=== PATIENT | male | born 1955 | race Caucasian/White ===

== ENCOUNTER 2020-12-14 20:04 | Emergency (ER) | payer SELFPAY ==
[~2020-12-14] VITALS: Ht 165.1 cm; Wt 104.3 kg
[2020-12-14 20:18] VITALS: BP 159/78
--- NOTE | 2020-12-14 20:18 | NUR ---
TO BED AMBULATORY Addendum: 12/14/20 at 2126 by PATRICK Amendment undjulia in EDM - 12/14/20 at 2126 by PATRICK PT TAKEN TO IDAAY FROM SHAYLA RUBI
--- NOTE | 2020-12-14 21:23 | NUR ---
Dr. Cleary examining patient.
[2020-12-14] MEDS ORDERED: IBUPROFEN 600 MG TAB PO ONE (21:25)
--- NOTE | 2020-12-14 21:25 | NUR ---
MEDICATED PER ERMDS ORDER, TOLERATED WELL
--- NOTE | 2020-12-14 21:27 | NUR ---
PT TAKEN TO XRAY FROM SHAYLA RUBI
[2020-12-14 21:47] LABS: BASOPHILS # (AUTO) 0.1 K/uL (0.00-0.22); BASOPHILS % (AUTO) 0.6 % (0.0-2.0); EOSINOPHILS # (AUTO) 0.1 K/uL (0-0.4); EOSINOPHILS % (AUTO) 0.6 % (0.0-4.0); HEMATOCRIT 43.3 % (36-52); HEMOGLOBIN 15.1 g/dL (12.0-18.0); LYMPHOCYTES # (AUTO) 2.1 K/uL (2.0-11.5); LYMPHOCYTES % (AUTO) 22.5 % (20.5-51.1); MEAN CORPUSCULAR HEMOGLOBIN 32 pg (27-31); MEAN CORPUSCULAR HGB CONC 35 g/dL (33-37); MEAN CORPUSCULAR VOLUME 90.9 fL (80-94); MONOCYTES # (AUTO) 0.6 K/uL (0.8-1.0); MONOCYTES % (AUTO) 6.4 % (1.7-9.3); NEUTROPHILS # (AUTO) 6.6 K/uL (1.8-7.7); NEUTROPHILS % (AUTO) 69.9 % (42.2-75.2); PLATELET COUNT (AUTO) 226 K/uL (140-450); RED BLOOD CELL COUNT(AUTO) 4.76 MIL/uL (4.20-6.10); RED CELL DISTRIBUTION WIDTH 13.6 % (11.6-13.7); WHITE BLOOD COUNT (AUTO) 9.4 K/uL (4.8-10.8)
[2020-12-14 22:07] LABS: ANION GAP 13.2 (8-16); CARBON DIOXIDE 31.2 mmol/L (21-32); CREATININE 0.7 mg/dL (0.6-1.3); POTASSIUM 3.4 mmol/L (3.5-5.1)
[2020-12-14] MEDS ORDERED: DOXY-487 PO (22:53)
--- NOTE | 2020-12-14 23:00 | NUR ---
ALL RESULTS BACK AND NOTED BY ERMD AND FOR D/C
[2020-12-14 23:15] VITALS: BP 123/72
== END 2020-12-14 23:15 | disposition home or self-care (01) ==
LOC: MED 20:04
DX: R91.8 Other nonspecific abnormal finding of lung field (principal); F10.10 Alcohol abuse, uncomplicated; E11.9 Type 2 diabetes mellitus without complications; Z79.899 Other long term (current) drug therapy
CPT/HCPCS: 36415; 71045; 80048; 84484; 85025; 93005; 99285

== ENCOUNTER 2021-02-12 19:40 | Emergency (ER) | payer SELFPAY ==
[~2021-02-12] VITALS: Ht 165.1 cm; Wt 99.8 kg
[~2021-02-12 19:40] MED LIST: DOXY-487 PO
[2021-02-12 20:08] VITALS: BP 134/81
--- NOTE | 2021-02-12 20:08 | NUR ---
TO BED AMBULATORY
--- NOTE | 2021-02-12 20:24 | NUR ---
MARY Mak at bedside for examination of patient
--- NOTE | 2021-02-12 20:45 | NUR ---
patient to CT via w/c
[2021-02-12] MEDS ORDERED: MIRABULK PO (21:11)
[2021-02-12] MEDS ORDERED: FLEMIN RC (21:11)
[2021-02-12] MEDS ORDERED: GLYPS RC (21:11)
--- NOTE | 2021-02-12 21:23 | NUR ---
Patient discharged with v/s stable. Written and verbal after care instructions given and explained. Patient alert, oriented and verbalized understanding of instructions. Ambulatory with steady gait. All questions addressed prior to discharge. ID band removed. Patient advised to follow up with PMD. Rx of Mineral oil enema, glycerin, and miralax given. Patient educated on indication of medication including possible reaction and side effects. Opportunity to ask questions provided and answered.
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
[2021-02-12 21:24] VITALS: BP 137/93
== END 2021-02-12 21:23 | disposition home or self-care (01) ==
LOC: MED 19:40
DX: K59.00 Constipation, unspecified (principal); K62.89 Other specified diseases of anus and rectum; E11.9 Type 2 diabetes mellitus without complications; Z79.899 Other long term (current) drug therapy; Z98.890 Other specified postprocedural states
CPT/HCPCS: 74021; 99283

== ENCOUNTER 2021-03-10 18:38 | Emergency (ER) | payer SELFPAY ==
[~2021-03-10] VITALS: Ht 167.6 cm; Wt 113.4 kg
[~2021-03-10 18:38] MED LIST changes: +FLEMIN RC; +GLYPS RC; +MIRABULK PO
[2021-03-10 19:46] VITALS: BP 132/71
--- NOTE | 2021-03-10 19:49 | NUR ---
TO LOBBY A/W BED AMBULATORY
[2021-03-10] MEDS ORDERED: LIDOCAINE MPF 1% 10 MG/ML VIAL INJ ONE (22:45)
[2021-03-10] MEDS ORDERED: KETOROLAC 60 MG/2 ML VIAL IM ONE (22:45)
--- NOTE | 2021-03-10 22:50 | NUR ---
PT AMBULATED TO BED 01
[2021-03-10] MEDS ORDERED: CEPH-588 PO (23:33)
[2021-03-10] MEDS ORDERED: IBUP-2213 PO (23:33)
[2021-03-10] MEDS ORDERED: ACET-8386 PO (23:33)
[2021-03-10 23:59] VITALS: BP 132/71
--- NOTE | 2021-03-10 23:59 | NUR ---
Patient discharged with v/s stable. Written and verbal after care instructions given and explained. Patient verbalized understanding. Ambulatory with steady gait. All questions addressed prior to discharge. Advised to follow up with PMD.
== END 2021-03-10 23:59 | disposition home or self-care (01) ==
LOC: MED 18:38
DX: L02.511 Cutaneous abscess of right hand (principal); E11.9 Type 2 diabetes mellitus without complications; F15.10 Other stimulant abuse, uncomplicated; F11.10 Opioid abuse, uncomplicated
CPT/HCPCS: 10060; 36415; 81002; 87491; 96372; 99283; J1885; J2001

== ENCOUNTER 2022-01-11 19:57 | Emergency (ER) | payer MEDICAID ==
[~2022-01-11] VITALS: Ht 165.1 cm; Wt 78.0 kg
[~2022-01-11 19:57] MED LIST changes: +ACET-8386 PO; +CEPH-588 PO; +IBUP-2213 PO
[2022-01-11 20:04] VITALS: BP 152/67
--- NOTE | 2022-01-11 20:24 | NUR ---
Patient taken to x-ray via WC.
--- NOTE | 2022-01-11 21:02 | NUR ---
Dr. Coffey examining patient.
--- NOTE | 2022-01-11 23:01 | NUR ---
Dr. Delaney examining patient.
[2022-01-11] MEDS ORDERED: IBUP-1842 PO (23:33)
[2022-01-11 23:55] VITALS: BP 125/62
--- NOTE | 2022-01-11 23:55 | NUR ---
Patient discharged with v/s stable. Written and verbal after care instructions given and explained for knee sprain, adult. Patient alert, oriented and verbalized understanding of instructions. Ambulatory with steady gait. All questions addressed prior to discharge. ID band removed. Patient advised to follow up with PMD. Rx of Ibuprofen given. Patient educated on indication of medication including possible reaction and side effects. Opportunity to ask questions provided and answered.
== END 2022-01-11 23:55 | disposition home or self-care (01) ==
LOC: MED 19:57
DX: M25.561 Pain in right knee (principal); E11.9 Type 2 diabetes mellitus without complications; Z79.4 Long term (current) use of insulin; Z79.899 Other long term (current) drug therapy
CPT/HCPCS: 73562; 99283

== ENCOUNTER 2022-01-13 16:11 | Emergency (ER) | payer MEDICAID ==
[~2022-01-13] VITALS: Ht 175.3 cm; Wt 86.2 kg
[~2022-01-13 16:11] MED LIST changes: +IBUP-1842 PO
[2022-01-13 16:14] VITALS: BP 122/78
--- NOTE | 2022-01-13 16:19 | NUR ---
PT AMBULATED TO ROOM 7
--- NOTE | 2022-01-13 16:31 | NUR ---
66YO MALE PT IN FOR MEDICATION REFILL - RX SUBOXINE. PT AAOX4, RESPIRATIONS EVEN AND UNLABORED. HOB POSITIONED PER COMFORT. HX:DIABETES, HTN , MIGRAINE NKA
--- NOTE | 2022-01-13 16:34 | NUR ---
MEENAKSHI BRANHAM AT BEDSIDE FOR EVALUATION
--- NOTE | 2022-01-13 16:35 | NUR ---
66/M PRESENTS TO ED REQUESTING REFILL FOR SUBOXONE, DENIES N/V/D, PAIN, SOB. NO OTHER MEDICAL COMPLAINTS.
[2022-01-13] MEDS ORDERED: BUPR1FIL2 SL (16:42)
--- NOTE | 2022-01-13 16:55 | NUR ---
Patient discharged with v/s stable. Written and verbal after care instructions FOR OPIOID WITHDRAWAL TREATMENT given and explained. Patient alert, oriented and verbalized understanding of instructions. Ambulatory with steady gait. All questions addressed prior to discharge. ID band removed. Patient advised to follow up with PMD. Rx of SUBOXONE given. Opportunity to ask questions provided and answered.
--- NOTE | 2022-01-13 16:58 | NUR ---
The patient's care was reviewed and supervised by Jenni Oh RN.
== END 2022-01-13 16:55 | disposition home or self-care (01) ==
LOC: MED 16:11
DX: E11.9 Type 2 diabetes mellitus without complications (principal); F11.23 Opioid dependence with withdrawal; Z76.0 Encounter for issue of repeat prescription; Z79.4 Long term (current) use of insulin; Z79.899 Other long term (current) drug therapy
CPT/HCPCS: 99281

== ENCOUNTER 2022-01-27 23:10 | Emergency (ER) | payer SELFPAY ==
[~2022-01-27] VITALS: Ht 165.1 cm; Wt 77.1 kg
[~2022-01-27 23:10] MED LIST changes: +BUPR1FIL2 SL
[2022-01-27 23:26] VITALS: BP 118/66
--- NOTE | 2022-01-27 23:27 | NUR ---
PT AMBULATED TO BED #3
[2022-01-27] MEDS ORDERED: DOXYCYCLINE 100 MG CAP PO STA (23:46)
[2022-01-27] MEDS ORDERED: LIDOCAINE/EPI 2% 1:100000 20 ML VIAL INJ ONE (23:50)
--- NOTE | 2022-01-28 00:40 | NUR ---
DR. ARAMBULA AT BEDSIDE FOR PROCEDURE OF I&D TO LEFT ARMPIT. PT TOLERATING WELL.
[2022-01-28] MEDS ORDERED: DOXY-690 PO (00:53)
[2022-01-28 01:05] VITALS: BP 112/68
--- NOTE | 2022-01-28 01:05 | NUR ---
Patient discharged with v/s stable. Written and verbal after care instructions given and explained. Patient alert, oriented and verbalized understanding of instructions. Ambulatory with steady gait. All questions addressed prior to discharge. ID band removed. Patient advised to follow up with PMD. Rx of VIBRAMYCIN given. Patient educated on indication of medication including possible reaction and side effects. Opportunity to ask questions provided and answered.
[2022-01-29] MEDS ORDERED: BUPR1FIL2 SL (18:03)
[2022-01-29] MEDS ORDERED: IBUP-2213 PO (18:03)
== END 2022-01-28 01:05 | disposition home or self-care (01) ==
LOC: MED 23:10
DX: L02.412 Cutaneous abscess of left axilla (principal); I10 Essential (primary) hypertension; E11.9 Type 2 diabetes mellitus without complications; Z79.4 Long term (current) use of insulin; Z79.899 Other long term (current) drug therapy
CPT/HCPCS: 10060; 99283; J2001

== ENCOUNTER 2022-01-29 16:32 | Emergency (ER) | payer SELFPAY ==
[~2022-01-29] VITALS: Ht 165.1 cm; Wt 77.1 kg
[~2022-01-29 16:32] MED LIST changes: +DOXY-690 PO
[2022-01-29 16:57] VITALS: BP 150/94
--- NOTE | 2022-01-29 17:43 | NUR ---
PT AMB TO ER BED 7
--- NOTE | 2022-01-29 17:46 | NUR ---
MEENAKSHI Pena evaluating patient at bedside.
[2022-01-29] MEDS ORDERED: BACITRACIN OINT 500 UNITS/GM PKT TP ONE (17:55)
--- NOTE | 2022-01-29 18:00 | NUR ---
66 y/o male bib self with c/o wound recheck. Patient had an I&D 2 days ago. Patient is noted with multiple abscesses to left axillary. Patient has 7/10 pain to area. Medical History: DM, HTN NKDA
[2022-01-29] MEDS ORDERED: IBUP-2213 PO (18:03)
[2022-01-29] MEDS ORDERED: BUPR1FIL2 SL (18:03)
--- NOTE | 2022-01-29 18:08 | NUR ---
PTS WOUND ON LEFT AXILLA WAS CLEANED WITH SALINE. WOUND WAS THEN DRESSED WITH NONADHERENT GAUZE PAD AND TAPED DOWN.
--- NOTE | 2022-01-29 18:11 | NUR ---
Note hakan in EDM - 01/29/22 at 1812 by SAMI Patient discharged with v/s stable. Written and verbal after care instructions given. Patient verbalized understanding. Ambulatory with steady gait. All questions addressed prior to discharge. Advised to follow up with PMD.
[2022-01-29 18:29] VITALS: BP 146/84
--- NOTE | 2022-01-29 18:29 | NUR ---
Patient discharged with v/s stable. Written and verbal after care instructions given. Patient alert, oriented and verbalized understanding of instructions. Ambulatory with steady gait. All questions addressed prior to discharge. ID band removed. Patient advised to follow up with PMD. Rx of Ibuprofen and Suboxone given. Opportunity to ask questions provided and answered.
--- NOTE | 2022-01-29 18:30 | NUR ---
Chart checked and completed. The patient's care was reviewed and supervised by Francine Staples RN.
== END 2022-01-29 18:29 | disposition home or self-care (01) ==
LOC: MED 16:32
DX: Z48.00 Encounter for change or removal of nonsurgical wound dressing (principal); Z76.0 Encounter for issue of repeat prescription
CPT/HCPCS: 99282

== ENCOUNTER 2022-02-18 12:16 | Emergency (ER) | payer MEDICAID ==
[~2022-02-18] VITALS: Ht 165.1 cm; Wt 77.1 kg
[2022-02-18 13:08] VITALS: BP 121/81
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
[2022-02-18] MEDS ORDERED: SULF-58 PO (14:19)
[2022-02-18] MEDS ORDERED: BUPR1FIL2 SL (14:19)
--- NOTE | 2022-02-18 14:36 | NUR ---
PT UP FOR D/C BY MEENAKSHI TRUJILLO, PT LEFT WITHOUT D.C PAPERS.
== END 2022-02-18 14:36 | disposition home or self-care (01) ==
LOC: MED 12:16
DX: L02.414 Cutaneous abscess of left upper limb (principal); I10 Essential (primary) hypertension; E11.9 Type 2 diabetes mellitus without complications; Z79.4 Long term (current) use of insulin; Z79.899 Other long term (current) drug therapy
CPT/HCPCS: 99281

== ENCOUNTER 2022-06-11 16:42 | Inpatient (IN) | payer MEDICAID, OTHER ==
[~2022-06-11] VITALS: Ht 165.1 cm; Wt 74.8 kg
[~2022-06-11 16:42] MED LIST changes: -ACET-8386 PO; +ACET-8905 PO; +SULF-58 PO
[2022-06-11 16:48] VITALS: BP 115/90
[2022-06-11] MEDS ORDERED: MORPHINE SULFATE 4 MG/ML SYR IVP ONE (17:55)
[2022-06-11 18:48] LABS: BASOPHILS # (AUTO) 0.1 K/uL (0.00-0.22); BASOPHILS % (AUTO) 0.9 % (0.0-2.0); EOSINOPHILS # (AUTO) 0.1 K/uL (0-0.4); EOSINOPHILS % (AUTO) 1.1 % (0.0-4.0); HEMATOCRIT 39.7 % (36-52); HEMOGLOBIN 13.9 g/dL (12.0-18.0); LYMPHOCYTES # (AUTO) 2.3 K/uL (2.0-11.5); LYMPHOCYTES % (AUTO) 19.3 % (20.5-51.1); MEAN CORPUSCULAR HEMOGLOBIN 32 pg (27-31); MEAN CORPUSCULAR HGB CONC 35 g/dL (33-37); MEAN CORPUSCULAR VOLUME 90.2 fL (80-94); MONOCYTES # (AUTO) 0.9 K/uL (0.8-1.0); NEUTROPHILS # (AUTO) 8.3 K/uL (1.8-7.7); NEUTROPHILS % (AUTO) 70.7 % (42.2-75.2); PLATELET COUNT (AUTO) 258 K/uL (140-450); RED CELL DISTRIBUTION WIDTH 13.7 % (11.6-13.7); WHITE BLOOD COUNT (AUTO) 11.7 K/uL (4.8-10.8)
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
[2022-06-11 19:21] LABS: ALBUMIN 3.1 g/dL (3.4-5.0); ANION GAP 15.7 (8-16); CREATININE 0.9 mg/dL (0.6-1.3); POTASSIUM 4.7 mmol/L (3.5-5.1); TOTAL BILIRUBIN 0.7 mg/dL (0.0-1.0)
[2022-06-11] MEDS ORDERED: VANCOMYCIN 1,000 MG in DEXTROSE 5% 250 ML IV ONE (19:25)
[2022-06-11] MEDS ORDERED: INSULIN REGULAR, HUMAN 100 UNIT/ML VIAL IVP ONE (19:25)
[2022-06-11] MEDS ORDERED: NACL 0.9% 2,500 ML IV ONE (19:25)
[2022-06-11] MEDS ORDERED: VANCOMYCIN 1,000 MG VIAL ONE (19:47)
[2022-06-11] MEDS ORDERED: KETOROLAC 30 MG/ML VIAL IVP ONE (20:00)
[2022-06-11] MEDS ORDERED: ACETAMINOPHEN 325 MG TAB PO PRN (20:35)
[2022-06-11] MEDS ORDERED: MAGNESIUM OXIDE 400 MG TAB PO PRN (20:35)
[2022-06-11] MEDS: NACL 0.9% 1,000 ML IV SCH (20:35)
[2022-06-11] MEDS ORDERED: VANCOMYCIN PER PHARMACY MC PRN (20:35)
[2022-06-11] MEDS ORDERED: ONDANSETRON 4 MG/2 ML VIAL IVP PRN (20:35)
[2022-06-11] MEDS ORDERED: MORPHINE SULFATE 4 MG/ML SYR IVP PRN (20:35)
[2022-06-11] MEDS ORDERED: MAG SULF 2000 MG/WATER PREMIX 50 ML IV PRN (20:35)
[2022-06-11] MEDS ORDERED: POTASSIUM CHLORIDE 10 MEQ TABER PO PRN (20:35)
[2022-06-11] MEDS ORDERED: KCL 20 MEQ IN 100 mL PREMIX 200 ML IV PRN (20:35)
--- NOTE | 2022-06-11 21:04 | NUR ---
PT UNABLE TO RECALL MEDS. PT STATES HE IS TAKING INSULIN
--- NOTE | 2022-06-11 21:54 | NUR ---
REPORT CALLED TO NADIR PATE
--- NOTE | 2022-06-11 22:00 | NUR ---
TO BED 108B VIA W/C
[2022-06-11 22:15] VITALS: BP 104/75
--- NOTE | 2022-06-11 22:15 | NUR ---
PT TRANSPORTED TO [facility] UNIT VIA WHEELCHAIR. RECEIVED REPORT FROM ER NURSE ERROL FOR CONTINUITY OF CARE. PT A/A/O. HAVE A DIFFICULTY WALKING, PT HAVE WALKER AT BEDSIDE. RESPIRATIONS EVEN AND UNLABORED ON RA. NO DISTRESS NOTED. CONTINENT TO BOWEL AND BLADDER. NOTED OPEN WOUND ON RIGHT LOWER EXT WITH DRESSING, PHOTOS TAKEN AND FILED TO CHART. V/S AND MRSA TAKEN. PT ORIENTED TO ROOM, UNIT AND ROUTINE. INITIAL ASSESSMENT DONE. POC DISCUSSED WITH PT AND RN CYNTHIA. CALL LIGHT WITHIN REACH. SAFETY PRECAUTIONS IN PLACE.
--- NOTE | 2022-06-11 22:30 | NUR ---
Patient's Plan of Care was discussed and reviewed with ILAN PATE
[2022-06-11] MEDS ORDERED: DEXTROSE 50% 50 ML SYR IVP PRN (22:45)
[2022-06-11] MEDS: HYDROcodone/APAP 5/325 MG 1 TAB TAB PO PRN (22:45)
[2022-06-11] MEDS ORDERED: cefTRIAXone 1,000 MG VIAL ONE (22:48)
--- NOTE | 2022-06-11 23:00 | NUR ---
ADMINISTERED ROCEPHIN IVPB TO PATIENT. MEDICATION WAS ADMINISTERED SUCCESSFULLY WITHOUT ANY ISSUES. INFORMED ILAN PATE OF MEDICATION ADMINISTRATION.
[2022-06-12 04:00] VITALS: BP 137/83
--- NOTE | 2022-06-12 04:06 | NUR ---
V/S TAKEN AND WITHIN NORMAL LIMITS. NO COMPLAINTS OF PAIN. NO DISTRESS NOTED.
[2022-06-12] MEDS: INSULIN LISPRO SLIDING SCALE 100 UNITS/ML VIAL SUBQ PRN ×3 (06:35→17:22)
[2022-06-12] MEDS: BLOOD GLUCOSE MONITORING 1 DEV DEV FS SCH ×3 (06:36→17:20)
--- NOTE | 2022-06-12 06:45 | NUR ---
10 UNITS SLIDING SCALE INSULIN GIVEN FOR BS 439. PAGED DR MERINO FOR ADDITIONAL ORDER. AWAITING FOR CALL BACK. PT NO COMPLAINTS OF ANY DISCOMFORT. NO DISTRESS NOTED.
--- NOTE | 2022-06-12 07:15 | NUR ---
RECEIVED REPORT FROM NIGHT NURSE HERLINDA FOR CONTINUITY OF CARE. INITIAL ASSESSMENT DONE. IVF INFUSING WELL. NO C/O PAIN OR DISCOMFORT. CALL LIGHT KEPT WITHIN REACH. WILL CONTINUE TO MONITOR.
--- NOTE | 2022-06-12 07:20 | NUR ---
GAVE BEDSIDE REPORT TO ILAN GOTTLIEB FOR CONTINUITY OF CARE. ENDORSED BS OF 439, NO RESPONSE FROM DR MERINO FOR ADDITIONAL ORDER-FOR FOLLOW-UP. PT IS STABLE.
[2022-06-12 08:00] VITALS: BP 103/67
[2022-06-12 08:50] LABS: BASOPHILS # (AUTO) 0.1 K/uL (0.00-0.22); BASOPHILS % (AUTO) 0.8 % (0.0-2.0); EOSINOPHILS # (AUTO) 0.2 K/uL (0-0.4); HEMATOCRIT 37.2 % (36-52); HEMOGLOBIN 13.2 g/dL (12.0-18.0); LYMPHOCYTES % (AUTO) 23.7 % (20.5-51.1); MEAN CORPUSCULAR HEMOGLOBIN 32 pg (27-31); MEAN CORPUSCULAR HGB CONC 35 g/dL (33-37); MEAN CORPUSCULAR VOLUME 90.3 fL (80-94); MONOCYTES # (AUTO) 0.5 K/uL (0.8-1.0); MONOCYTES % (AUTO) 6.3 % (1.7-9.3); NEUTROPHILS # (AUTO) 5.6 K/uL (1.8-7.7); NEUTROPHILS % (AUTO) 67.2 % (42.2-75.2); PLATELET COUNT (AUTO) 199 K/uL (140-450); RED BLOOD CELL COUNT(AUTO) 4.12 MIL/uL (4.20-6.10); RED CELL DISTRIBUTION WIDTH 13.2 % (11.6-13.7); WHITE BLOOD COUNT (AUTO) 8.4 K/uL (4.8-10.8)
[2022-06-12] MEDS ORDERED: ENOXAPARIN 40 MG/0.4 ML SYR SUBQ SCH (09:00)
[2022-06-12] MEDS ORDERED: VANCOMYCIN 1,000 MG in NACL 0.9% 250 ML IV SCH (09:00)
[2022-06-12] MEDS: NACL 0.9% 1,000 ML IV SCH (09:05)
[2022-06-12 09:43] LABS: ALBUMIN 2.9 g/dL (3.4-5.0); ANION GAP 12.6 (8-16); CARBON DIOXIDE 25.4 mmol/L (21-32); CREATININE 0.7 mg/dL (0.6-1.3); MAGNESIUM 1.6 mg/dL (1.8-2.4); TOTAL BILIRUBIN 0.6 mg/dL (0.0-1.0)
--- NOTE | 2022-06-12 09:50 | NUR ---
SCHEDULED MEDICATION GIVEN. TOLERATING WELL.
--- NOTE | 2022-06-12 09:54 | NUR ---
PATIENT HAS BEEN SCREENED AND CATEGORIZED HIGH NUTRITION RISK. PATIENT WILL BE SEEN WITHIN 1-2 DAYS OF ADMISSION. 06/11/22-06/13/[address] FNS CONSULT RECEIVED FOR WOUNDS/PRESSURE INJURIES
--- NOTE | 2022-06-12 12:05 | NUR ---
BS CHECKED 248. INSULIN WAS GIVEN PER SLIDING SCALE.
[2022-06-12] MEDS ORDERED: [UNRECOGNIZED DRUG - CODE] PO (14:23)
[2022-06-12] MEDS ORDERED: LEVO-481 PO (14:23)
[2022-06-12] MEDS ORDERED: ACET-9525 PO (14:24)
[2022-06-12] MEDS: HYDROcodone/APAP 5/325 MG 1 TAB TAB PO PRN (15:20)
--- NOTE | 2022-06-12 17:20 | NUR ---
BS CHECKED 152. INSULIN WAS GIVEN PER SLIDING SCALE.
--- NOTE | 2022-06-12 18:45 | NUR ---
PT LEFT. DISCHARGE TO HOME. TRANSPORTED BY PRIVATE VEHICLE PER WALKER. ACCOMPANIED BY HIS NEPHEW. ALERT AND ORIENTED X 4. IV AND ID BAND REMOVED. WOUND CARE DONE PRIOR DISCHARGE. DISCHARGE PAPERWORK DISCUSS AND SIGNED BY PT. PERSONAL BELONGINGS TAKEN. REMAINS STABLE.
--- NOTE | 2022-06-13 09:29 | NUR ---
WOUND CONSULT NOT DONE. PT DISCHARGED.
--- NOTE | 2022-06-13 15:58 | NUR ---
DC PLANNING: [facility] ACCEPTED PATIENT. EVELYN FORM [facility] PROVIDE THE AUTH [id number]. [facility] WILL START THE CARE 06/14 NOTIFIED PATIENT. CM TO FOLLOW
--- NOTE | 2022-06-13 16:26 | NUR ---
CALLED DR BRAVO'S OFFICE LOCATED AT [address] [place] [id number]. SPOKE WITH RACHEL WHO INFORMED ME PATIENT HAD ALREADY MADE FOLLOW UP APPOINTMENT FOR 06/17/2022 AT 1400.
== END 2022-06-12 18:45 | disposition home health service (06) | DRG 720 ==
LOC: MED 16:42 → MTU 20:33
PROVIDERS: ADMIT Hospitalist; ATTEND Hospitalist
DX: A41.9 Sepsis, unspecified organism (principal); E87.20 Acidosis, unspecified; S81.801A Unspecified open wound, right lower leg, initial encounter; E11.65 Type 2 diabetes mellitus with hyperglycemia; I10 Essential (primary) hypertension; Z20.822 Contact with and (suspected) exposure to COVID-19; X58.XXXA Exposure to other specified factors, initial encounter; L08.89 Other specified local infections of the skin and subcutaneous tissue; Z79.2 Long term (current) use of antibiotics; Z79.4 Long term (current) use of insulin; Z79.891 Long term (current) use of opiate analgesic; Z79.899 Other long term (current) drug therapy; Y93.89 Activity, other specified; Y92.89 Other specified places as the place of occurrence of the external cause; Y99.8 Other external cause status; Z79.1 Long term (current) use of non-steroidal anti-inflammatories (NSAID)
CPT/HCPCS: 36415; 80053; 82948; 83605; 83735; 85025; 87040; 87081; 96365; 96375; 99285; J0696; J1650; J1815; J1885; J2270; J3370; J7030; J7060

== ENCOUNTER 2022-08-28 21:45 | Inpatient (IN) | payer OTHER ==
[~2022-08-28] VITALS: Ht 165.1 cm; Wt 89.4 kg
[~2022-08-28 21:45] MED LIST changes: -ACET-8905 PO; +ACET-9525 PO; -BUPR1FIL2 SL; -CEPH-588 PO; -DOXY-487 PO; -DOXY-690 PO; -FLEMIN RC; -GLYPS RC; -IBUP-1842 PO; -IBUP-2213 PO; +LEVO-481 PO; -MIRABULK PO; -SULF-58 PO; +[UNRECOGNIZED DRUG - CODE] PO
[2022-08-28 22:03] VITALS: BP 117/70
--- NOTE | 2022-08-28 22:34 | NUR ---
PT. WALKED TO BED 09.
--- NOTE | 2022-08-28 22:52 | NUR ---
ER MD ALMAZAN AT BEDSIDE
[2022-08-28] MEDS ORDERED: cefTRIAXone 1,000 MG in DEXT 5% MINI-BAG PLUS 50 ML IV ONE (23:00)
[2022-08-28] MEDS ORDERED: NACL 0.9% 1,000 ML IV SCH (23:00)
[2022-08-28] MEDS ORDERED: MORPHINE SULFATE 4 MG/ML SYR IVP ONE (23:05)
--- NOTE | 2022-08-28 23:06 | NUR ---
X-Ray at bedside.
[2022-08-28] MEDS ORDERED: cefTRIAXone 1,000 MG VIAL ONE (23:15)
[2022-08-28 23:22] LABS: BASOPHILS # (AUTO) 0.1 K/uL (0.00-0.22); BASOPHILS % (AUTO) 0.7 % (0.0-2.0); EOSINOPHILS # (AUTO) 0.1 K/uL (0-0.4); EOSINOPHILS % (AUTO) 1.9 % (0.0-4.0); HEMOGLOBIN 14.5 g/dL (12.0-18.0); LYMPHOCYTES # (AUTO) 2.3 K/uL (2.0-11.5); LYMPHOCYTES % (AUTO) 30.7 % (20.5-51.1); MEAN CORPUSCULAR HEMOGLOBIN 32 pg (27-31); MEAN CORPUSCULAR HGB CONC 35 g/dL (33-37); MEAN CORPUSCULAR VOLUME 90.2 fL (80-94); MONOCYTES # (AUTO) 0.5 K/uL (0.8-1.0); MONOCYTES % (AUTO) 6.8 % (1.7-9.3); NEUTROPHILS # (AUTO) 4.6 K/uL (1.8-7.7); NEUTROPHILS % (AUTO) 59.9 % (42.2-75.2); PLATELET COUNT (AUTO) 180 K/uL (140-450); RED BLOOD CELL COUNT(AUTO) 4.55 MIL/uL (4.20-6.10); RED CELL DISTRIBUTION WIDTH 14.4 % (11.6-13.7); WHITE BLOOD COUNT (AUTO) 7.6 K/uL (4.8-10.8)
[2022-08-28 23:33] LABS: APPEARANCE,URINE CLEAR (CLEAR); BILIRUBIN,URINE NEGATIVE (NEGATIVE); BLOOD, URINE NEGATIVE (NEGATIVE); COLOR,URINE YELLOW (YELLOW); LEUKOCYTE ESTERASE ,URINE NEGATIVE (NEGATIVE); NITRITE, URINE NEGATIVE (NEGATIVE); UGLUCOSE 3+ (NEGATIVE)
--- NOTE | 2022-08-28 23:33 | NUR ---
Patient noted to have existing wounds upon arrival to ER. Photos taken of wound and placed in chart. Wound covered with dressing. Physician informed.
[2022-08-28 23:43] LABS: ALBUMIN 3.7 g/dL (3.4-5.0); CARBON DIOXIDE 27.7 mmol/L (21-32); CREATININE 0.8 mg/dL (0.6-1.3); POTASSIUM 3.7 mmol/L (3.5-5.1); TOTAL BILIRUBIN 0.6 mg/dL (0.0-1.0)
[2022-08-29] MEDS ORDERED: HYDROcodone/APAP 5/325 MG 1 TAB TAB PO PRN (00:35)
[2022-08-29] MEDS ORDERED: MAG SULF 2000 MG/WATER PREMIX 50 ML IV PRN (00:35)
[2022-08-29] MEDS ORDERED: ONDANSETRON 4 MG/2 ML VIAL IVP PRN (00:35)
[2022-08-29] MEDS ORDERED: VANCOMYCIN PER PHARMACY MC PRN (00:35)
[2022-08-29] MEDS ORDERED: MAGNESIUM OXIDE 400 MG TAB PO PRN (00:35)
[2022-08-29] MEDS ORDERED: POTASSIUM CHLORIDE 10 MEQ TABER PO PRN (00:35)
[2022-08-29] MEDS ORDERED: ACETAMINOPHEN 325 MG TAB PO PRN (00:35)
[2022-08-29] MEDS ORDERED: KCL 20 MEQ IN 100 mL PREMIX 200 ML IV PRN (00:35)
[2022-08-29] MEDS ORDERED: GABA300C PO (01:16)
--- NOTE | 2022-08-29 01:18 | NUR ---
PAGED OUT FOR MD FOR ORDERS AND PATIENT CONDITION. WILL AWAIT FOR CALL BACK
--- NOTE | 2022-08-29 01:22 | NUR ---
SPOKE WITH DR. ADLER ABOUT PATIENT CONDITION AND RECEIVED ORDERS OF 600MG GABAPENTIN PO TID AND PER IT IS OK TO GIVE FIRST DOSE OF GABAPENTIN NOW. ORDERS REPEATED BACK.
[2022-08-29] MEDS ORDERED: VANCOMYCIN 1,500 MG in DEXTROSE 5% 500 ML IV SCH (01:25)
[2022-08-29] MEDS ORDERED: GABAPENTIN 100 MG CAP ONE (01:56)
[2022-08-29] MEDS ORDERED: GABAPENTIN 100 MG CAP PO SCH (02:00)
--- NOTE | 2022-08-29 07:17 | NUR ---
Pt report given to Cordell SCHMITZ. Transfer of care at this time.
--- NOTE | 2022-08-29 08:22 | NUR ---
Patient will be admitted to care of DR SANCHEZ. Admited to MED SURG. Will go to room 113. Belongings list completed. Report to ALLEGRA SCHMITZ.
[2022-08-29 08:30] VITALS: BP 141/78
--- NOTE | 2022-08-29 08:30 | NUR ---
RECEIVED PT FROM GRINDING MILL OPERATOR, VIA DANA, PT IS AWAKE, ALERT AND ORIENTED, ON ROOM AIR, PT HAS DRESSING ON RIGHT LEG DRY AND INTACT, IV LINE NOTED ON THE RIGHT HAND G. 22 ON SALINE LOCK, PT HAS TATTOOS ALL OVER THE BODY, NO SIGN OF DISTRESS NOTED AND WILL MONITOR PT
[2022-08-29] MEDS ORDERED: DEXTROSE 50% 50 ML SYR IVP PRN (08:35)
--- NOTE | 2022-08-29 09:02 | NUR ---
PATIENT HAS BEEN SCREENED AND CATEGORIZED MODERATE NUTRITION RISK. PATIENT WILL BE SEEN WITHIN 3-5 DAYS OF ADMISSION. 09/01/22-09/03/[address]
[2022-08-29] MEDS: GABAPENTIN 100 MG CAP PO SCH ×3 (10:40→17:50)
[2022-08-29] MEDS: DOCUSATE SODIUM 100 MG GELCAP PO SCH (10:40)
[2022-08-29] MEDS: VANCOMYCIN 1,000 MG in DEXTROSE 5% 250 ML IV SCH ×2 (10:41→22:12)
[2022-08-29] MEDS: MORPHINE SULFATE 4 MG/ML SYR IVP PRN ×3 (11:01→23:12)
[2022-08-29] MEDS: BLOOD GLUCOSE MONITORING 1 DEV DEV FS SCH ×3 (11:09→21:36)
[2022-08-29] MEDS: INSULIN LISPRO SLIDING SCALE 100 UNITS/ML VIAL SUBQ PRN ×3 (12:53→21:42)
[2022-08-29 16:00] VITALS: BP 157/85
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
--- NOTE | 2022-08-29 19:46 | NUR ---
ENDORSED PT TO NIGHT RN FOR CONTINUITY OF CARE, PT IS STABLE AT THIS TIME.
[2022-08-29 20:00] VITALS: BP 131/72
[2022-08-29] MEDS ORDERED: cefTRIAXone 2,000 MG in DEXTROSE 5% 100 ML IV SCH (21:00)
--- NOTE | 2022-08-29 21:44 | NUR ---
ADMINISTERED ALL SCHEDULED DUE MEDICATIONS. PATIENT IS ALERT , AMBULATES TO THE RESTROOM. NO DISTRESS. NO COMPLAINTS OF PAIN AT THIS TIME. IV SITE TO RIGHT HAND 22 G SALINE LOCK. CALL LIGHT IN REACH.
[2022-08-30] MEDS ORDERED: PIPERACILLIN/TAZOBACTAM 4.5 GM in DEXTROSE 5% 100 ML IV SCH ×2
--- NOTE | 2022-08-30 00:15 | NUR ---
ZOSYN 4.5 GM NOT GIVEN DISCONTINUED BY DR. ENRIQUEZ.
[2022-08-30 04:00] VITALS: BP 153/84
[2022-08-30] MEDS ORDERED: PIPERACILLIN/TAZOBACTAM 3.375 GM VIAL IV ONE (05:08)
[2022-08-30] MEDS: PIPERACILLIN/TAZOBACTAM 3.375 GM in DEXTROSE 5% 50 ML IV SCH ×3 (05:22→18:00)
[2022-08-30] MEDS: MORPHINE SULFATE 4 MG/ML SYR IVP PRN (05:39)
[2022-08-30] MEDS: BLOOD GLUCOSE MONITORING 1 DEV DEV FS SCH ×4 (06:34→20:43)
[2022-08-30] MEDS: INSULIN LISPRO SLIDING SCALE 100 UNITS/ML VIAL SUBQ PRN ×4 (06:35→20:48)
[2022-08-30 08:00] VITALS: BP 143/82
[2022-08-30] MEDS ORDERED: CLONIDINE HYDROCHLORIDE 0.1 MG TAB PO PRN (08:35)
[2022-08-30] MEDS ORDERED: GABAPENTIN 300 MG CAP PO SCH (09:00)
[2022-08-30] MEDS: DOCUSATE SODIUM 100 MG GELCAP PO SCH (09:58)
[2022-08-30] MEDS: GABAPENTIN 300 MG CAP PO SCH ×3 (09:58→17:42)
[2022-08-30] MEDS: VANCOMYCIN 1,000 MG in DEXTROSE 5% 250 ML IV SCH (09:58)
[2022-08-30 10:10] LABS: BASOPHILS % (AUTO) 0.5 % (0.0-2.0); EOSINOPHILS # (AUTO) 0.1 K/uL (0-0.4); EOSINOPHILS % (AUTO) 1.6 % (0.0-4.0); HEMOGLOBIN 14.8 g/dL (12.0-18.0); LYMPHOCYTES # (AUTO) 1.2 K/uL (2.0-11.5); LYMPHOCYTES % (AUTO) 22.3 % (20.5-51.1); MEAN CORPUSCULAR HEMOGLOBIN 32 pg (27-31); MEAN CORPUSCULAR HGB CONC 35 g/dL (33-37); MEAN CORPUSCULAR VOLUME 90.7 fL (80-94); MONOCYTES # (AUTO) 0.5 K/uL (0.8-1.0); MONOCYTES % (AUTO) 9.1 % (1.7-9.3); NEUTROPHILS # (AUTO) 3.6 K/uL (1.8-7.7); NEUTROPHILS % (AUTO) 66.5 % (42.2-75.2); PLATELET COUNT (AUTO) 149 K/uL (140-450); RED BLOOD CELL COUNT(AUTO) 4.63 MIL/uL (4.20-6.10); WHITE BLOOD COUNT (AUTO) 5.4 K/uL (4.8-10.8)
[2022-08-30 10:26] LABS: ALBUMIN 3.4 g/dL (3.4-5.0); ANION GAP 10.6 (8-16); CARBON DIOXIDE 30.6 mmol/L (21-32); CREATININE 0.7 mg/dL (0.6-1.3); POTASSIUM 4.2 mmol/L (3.5-5.1); TOTAL BILIRUBIN 0.8 mg/dL (0.0-1.0)
[2022-08-30] MEDS ORDERED: VANCOMYCIN 500 MG in DEXTROSE 5% 100 ML IV SCH (11:30)
[2022-08-30] MEDS: oxyCODONE 5 MG TAB PO PRN ×2 (11:47→20:42)
--- NOTE | 2022-08-30 14:13 | NUR ---
Recovery Agent: Sammie GARCIA, in to see patient at bedside to complete a social service assessment. The patient is alert and oriented. I introduced myself and explained why I was in to see him. The patient was in agreement to speaking with me. According to the patient, he was residing at the [facility] in [place] for about 2 months. He was non compliant with the curfew of the facility and was out past 10p 2 nights in a row. The patient went to his daughter in [place] who is homeless. Eventually he went to a motel with his nephew in [place]. He does not have DME that he uses on a regular basis. He does not have a Power of Personnel Associate, but does have a support system whom he states he really can not depend on. He has a lot of family throughout [facility]. As to a discharge plan, the patient states he may be able to go with his ex- and child in the [facility]. Previously while at the [facility] in [place], the patient was receiving home health services from [facility]. They were providing would care services to him. I called and spoke to Naty SCHMITZ CM from [facility] inquiring about a referral to the [facility]. She advised that a an order will need to be sent over to [facility] for the [facility] as well as a resumption order for home health services with [facility]. She states it is a process to get placement and services in place, therefore starting early would be beneficial. F/U made with Leslie KABA, requesting an [facility] order and a resumption of home health services with [facility].
[2022-08-30 16:00] VITALS: BP 129/77
[2022-08-30 20:00] VITALS: BP 145/76
--- NOTE | 2022-08-30 20:42 | NUR ---
PATIENT COMPLAINED OF PAIN 12/27 TO RIGHT LOWER FOOT. MEDICATED ORDERED. Addendum: 08/30/22 at 2253 by Viji Larsen RN RN RIGHT LOWER LEG
[2022-08-30] MEDS: INSULIN LANTUS 100 UNITS/ML 10 ML VIAL SUBQ SCH (20:49)
--- NOTE | 2022-08-30 20:52 | NUR ---
ADMINISTERED ALL 2100 SCHEDULED MEDICATIONS. PATIENT ALERT ORIENTED. NO SOB NOTED ON ROOM AIR. CALL LIGHT IN REACH. IV SITE TO RIGHT FOREARM SALINE LOCK. BED WHEELS LOCK IN LOW POSITION.
[2022-08-30] MEDS: VANCOMYCIN 1,500 MG in DEXTROSE 5% 500 ML IV SCH (21:46)
[2022-08-31 04:00] VITALS: BP 138/77
[2022-08-31] MEDS: oxyCODONE 5 MG TAB PO PRN ×3 (04:56→20:58)
[2022-08-31] MEDS: PIPERACILLIN/TAZOBACTAM 3.375 GM in DEXTROSE 5% 50 ML IV SCH ×6 (05:24→23:43)
[2022-08-31] MEDS: BLOOD GLUCOSE MONITORING 1 DEV DEV FS SCH ×4 (06:30→21:07)
[2022-08-31] MEDS: INSULIN LISPRO SLIDING SCALE 100 UNITS/ML VIAL SUBQ PRN ×4 (06:32→21:08)
--- NOTE | 2022-08-31 07:27 | NUR ---
GAVE BEDSIDE REPORT TO AM NURSE FOR CONTINUITY OF CARE. PATIENT IN STABLE CONDITION.
--- NOTE | 2022-08-31 07:28 | NUR ---
RECEIVED PT FROM HIGHWALL DRILL OPERATOR NURSE FOR CONTINUITY OF CARE. PT IS AWAKE, AOX4. ABLE TO VERBALIZE NEEDS. PT TALKATIVE AND COOPERATIVE. RESPIRATIONS UNLABORED ON RA. SKIN WARM AND DRY TO TOUCH. IV ON R HAND 22G, SL. CALL LIGHT WITHIN REACH. ALL SAFETY PRECAUTIONS IN PLACE.
[2022-08-31 07:31] LABS: BASOPHILS % (AUTO) 0.7 % (0.0-2.0); EOSINOPHILS # (AUTO) 0.2 K/uL (0-0.4); EOSINOPHILS % (AUTO) 3.2 % (0.0-4.0); HEMATOCRIT 40.7 % (36-52); HEMOGLOBIN 14.7 g/dL (12.0-18.0); LYMPHOCYTES # (AUTO) 1.5 K/uL (2.0-11.5); LYMPHOCYTES % (AUTO) 24.7 % (20.5-51.1); MEAN CORPUSCULAR HEMOGLOBIN 32 pg (27-31); MEAN CORPUSCULAR HGB CONC 36 g/dL (33-37); MEAN CORPUSCULAR VOLUME 89.5 fL (80-94); MONOCYTES # (AUTO) 0.6 K/uL (0.8-1.0); MONOCYTES % (AUTO) 9.1 % (1.7-9.3); NEUTROPHILS # (AUTO) 3.8 K/uL (1.8-7.7); NEUTROPHILS % (AUTO) 62.3 % (42.2-75.2); PLATELET COUNT (AUTO) 149 K/uL (140-450); RED BLOOD CELL COUNT(AUTO) 4.55 MIL/uL (4.20-6.10); RED CELL DISTRIBUTION WIDTH 13.9 % (11.6-13.7); WHITE BLOOD COUNT (AUTO) 6.1 K/uL (4.8-10.8)
[2022-08-31 07:40] LABS: ALBUMIN 3.3 g/dL (3.4-5.0); ANION GAP 9.6 (8-16); CARBON DIOXIDE 30.4 mmol/L (21-32); CREATININE 0.6 mg/dL (0.6-1.3); TOTAL BILIRUBIN 0.9 mg/dL (0.0-1.0)
[2022-08-31 08:00] VITALS: BP 127/74
[2022-08-31] MEDS: GABAPENTIN 300 MG CAP PO SCH ×3 (08:32→17:49)
[2022-08-31] MEDS: DOCUSATE SODIUM 100 MG GELCAP PO SCH (08:37)
--- NOTE | 2022-08-31 08:38 | NUR ---
ADMINISTERED SCHEDULED MEDICATIONS. PT TOLERATING WELL. REFUSE MED COLACE, PT STATES "I DONT NEED THAT, I GO FINE TO THE BATHROOM ON MY OWN." PROVIDED PT TEACHING REGARDING TAKING MEDICATIONS PRESCRIBED RISK/BENEFIT. PT REFUSED.
[2022-08-31] MEDS ORDERED: GABA300C PO (08:41)
[2022-08-31] MEDS ORDERED: CLIN300C2 PO (08:41)
[2022-08-31] MEDS ORDERED: AMOX1TAB8 PO (08:41)
[2022-08-31] MEDS ORDERED: ACET-5636 PO (08:41)
--- NOTE | 2022-08-31 09:37 | NUR ---
PT C/O PAIN ON RIGHT LOWER LEG 10/10, PT MEDICATED.
--- NOTE | 2022-08-31 10:50 | NUR ---
BLOOD GLUCOSE CHECK-346, HUMALOG GIVEN PER SLIDING SCALE. PT TOLERATES WELL. TALKING ON PHONE.
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
[2022-08-31] MEDS: VANCOMYCIN 1,500 MG in DEXTROSE 5% 500 ML IV SCH ×2 (12:31→21:12)
--- NOTE | 2022-08-31 15:30 | NUR ---
CALLED [facility] GAVE MESSAGE TO ZITA ART STUDIO TEACHER. PT ATTEMPTING TO WORK OUT PLACEMENT WITH INSURANCE. NO UPDATES FROM [facility].
[2022-08-31] MEDS ORDERED: THERAHONEY GEL 42.5 GM TP PRN (15:35)
--- NOTE | 2022-08-31 15:40 | NUR ---
SPOKE TO , X-RAY RESULT TO RLE REPORTED, NO NEW ORDER GIVEN, RECOMMEND SURGEON CONSULT, NO NEW ORDER GIVEN.
[2022-08-31 16:00] VITALS: BP 131/82
--- NOTE | 2022-08-31 19:15 | NUR ---
ENDORSED PT TO AUTOMAT CAR ATTENDANT NURSE FOR CONTINUITY OF CARE. PT IS STABLE.
--- NOTE | 2022-08-31 19:17 | NUR ---
RECEIVED PATIENT AWAKE, NO DISTRESS NOTED. NO COMPLAINTS OF PAIN AT THIS TIME. CALL LIGHT IN REACH.
--- NOTE | 2022-08-31 21:03 | NUR ---
ALL 2100 SCHEDULED MEDICATIONS GIVEN. WELL TOLERATED.
[2022-08-31] MEDS: INSULIN LANTUS 100 UNITS/ML 10 ML VIAL SUBQ SCH (21:09)
[2022-09-01 04:00] VITALS: BP 138/75
[2022-09-01] MEDS: PIPERACILLIN/TAZOBACTAM 3.375 GM in DEXTROSE 5% 50 ML IV SCH ×3 (05:24→18:25)
[2022-09-01] MEDS: oxyCODONE 5 MG TAB PO PRN ×3 (06:01→18:31)
[2022-09-01] MEDS: INSULIN LISPRO SLIDING SCALE 100 UNITS/ML VIAL SUBQ PRN ×4 (06:36→21:17)
[2022-09-01 06:58] LABS: ALBUMIN 3.4 g/dL (3.4-5.0); ANION GAP 10.1 (8-16); BASOPHILS % (AUTO) 0.6 % (0.0-2.0); CREATININE 0.6 mg/dL (0.6-1.3); EOSINOPHILS # (AUTO) 0.2 K/uL (0-0.4); EOSINOPHILS % (AUTO) 3.5 % (0.0-4.0); HEMATOCRIT 43.2 % (36-52); HEMOGLOBIN 15.4 g/dL (12.0-18.0); LYMPHOCYTES # (AUTO) 1.6 K/uL (2.0-11.5); LYMPHOCYTES % (AUTO) 22.8 % (20.5-51.1); MAGNESIUM 1.9 mg/dL (1.8-2.4); MEAN CORPUSCULAR HEMOGLOBIN 32 pg (27-31); MEAN CORPUSCULAR HGB CONC 36 g/dL (33-37); MEAN CORPUSCULAR VOLUME 90.6 fL (80-94); MONOCYTES # (AUTO) 0.6 K/uL (0.8-1.0); MONOCYTES % (AUTO) 8.1 % (1.7-9.3); NEUTROPHILS # (AUTO) 4.6 K/uL (1.8-7.7); PLATELET COUNT (AUTO) 162 K/uL (140-450); POTASSIUM 4.1 mmol/L (3.5-5.1); RED BLOOD CELL COUNT(AUTO) 4.77 MIL/uL (4.20-6.10); RED CELL DISTRIBUTION WIDTH 14.1 % (11.6-13.7); TOTAL BILIRUBIN 0.9 mg/dL (0.0-1.0); WHITE BLOOD COUNT (AUTO) 7.1 K/uL (4.8-10.8)
--- NOTE | 2022-09-01 08:00 | NUR ---
Received patient resting in bed, awake and alert. not in any form of distress, shift assessment done and documented, plan of care discussed, patient is agreeable, will continue to monitor.
[2022-09-01] MEDS: BLOOD GLUCOSE MONITORING 1 DEV DEV FS SCH ×4 (08:03→21:15)
[2022-09-01] MEDS: DOCUSATE SODIUM 100 MG GELCAP PO SCH (09:00)
[2022-09-01] MEDS: GABAPENTIN 300 MG CAP PO SCH ×3 (09:15→17:07)
[2022-09-01] MEDS: VANCOMYCIN 1,500 MG in DEXTROSE 5% 500 ML IV SCH ×2 (10:00→21:08)
[2022-09-01] MEDS: THERAHONEY GEL 42.5 GM TP SCH (13:00)
[2022-09-01 16:00] VITALS: BP 137/87
--- NOTE | 2022-09-01 16:08 | NUR ---
director agricultural services: In to see patient to provide him an update as to the [facility] referral. Patient advised that additional clinical information was provided to IF, and his referral is still in review. At this time, there remains no order for discharge.
--- NOTE | 2022-09-01 17:27 | NUR ---
wound dressing changed per order patient tolerated well. patient remains stable.
[2022-09-01] MEDS ORDERED: IBUPROFEN 800 MG TAB PO PRN (18:35)
--- NOTE | 2022-09-01 19:30 | NUR ---
RECEIVED PT FROM MORNING SHIFT NURSE. PT IS AOX4, AMBULATORY, ABLE TO VERBALIZE NEEDS AND ABLE TO FOLLOW COMMANDS. PT IS ON ROOM AIR AND ON CARDIAC DIET. PT HAS IV ON LEFT FOREARM GAUGE 22, SALINE LOCK. PT HAS RIGHT LOWER LEG CELLULITIS. PT COMPLAIN OF PAIN ON RIGHT LOWER LEG. NO S/S OF RESPIRATORY DISTRESS NOTED. ALL SAFETY MEASURES IMPLEMENTED. BED IN LOW POSITION. BED WHEELS ON LOCK AND CALL LIGHT WITHIN REACH.
[2022-09-01] MEDS: INSULIN LANTUS 100 UNITS/ML 10 ML VIAL SUBQ SCH (21:16)
--- NOTE | 2022-09-01 21:17 | NUR ---
ALL SCHEDULED AND PRESCRIBED MEDICATION WAS GIVEN TO PT PER MD ORDER. PT BLOOD GLUCOSE IS 240, HUMALOG INSULIN 4 UNITS WAS ALSO GIVEN TO PT. PT WAS GIVEN PRN MOTIN DUE TO PAIN ON RIGHT LOWER LEG WITH PAIN SCALE OF 8/10. ALL SAFETY MEASURES IMPLEMENTED. BED IN LOW POSITION. BED WHEELS ON LOCK AND CALL LIGHT WITHIN REACH.
--- NOTE | 2022-09-01 22:00 | NUR ---
PT WAS GIVEN SANDWICH PER PT REQUEST. PT'S PAIN LESSEN AND NO S/S OF RESPIRATORY DISTRESS NOTED. ALL SAFETY MEASURES IMPLEMENTED. BED IN LOW POSITION, BED WHEELS ON LOCK AND CALL LIGHT WITHIN REACH.
[2022-09-02] VITALS: BP 135/75
[2022-09-02] MEDS: PIPERACILLIN/TAZOBACTAM 3.375 GM in DEXTROSE 5% 50 ML IV SCH ×5 (00:15→23:44)
--- NOTE | 2022-09-02 00:15 | NUR ---
SCHEDULED AND AND PRESCRIBED MEDICATION WAS GIVEN TO PT PER MD ORDER. ALL SAFETY MEASURES IMPLEMENTED. BED IN LOW POSITION, BED WHEELS ON LOCK AND CALL LIGHT WITHIN REACH.
[2022-09-02] MEDS: oxyCODONE 5 MG TAB PO PRN ×3 (00:54→22:29)
--- NOTE | 2022-09-02 00:54 | NUR ---
PT WAS GIVEN PRN OXYCODONE DUE TO RIGHT LOWER LED PAIN WITH PAIN SCALE OF 8/10. ALL SAFETY MEASURES IMPLEMENTED. BED IN LOW POSITION, BED WHEELS ON LOCK AND CALL LIGHT WITHIN REACH.
--- NOTE | 2022-09-02 02:00 | NUR ---
PT IS ON SLEEP. CHEST RISE AND FALL SYMMETRICALLY NOTED. RESPIRATION IS EVEN AND UNLABORED. ALL SAFETY MEASURES IMPLEMENTED. BED IN LOW POSITION, BED WHEELS ON LOCK AND CALL LIGHT WITHIN REACH.
--- NOTE | 2022-09-02 04:00 | NUR ---
CHECKED THE PT, STILL ON SLEEP. CHEST RISE AND FALL SYMMETRICALLY NOTED. RESPIRATION IS EVEN AND UNLABORED. ALL SAFETY MEASURES IMPLEMENTED. BED IN LOW POSITION, BED WHEELS ON LOCK AND CALL LIGHT WITHIN REACH.
--- NOTE | 2022-09-02 05:16 | NUR ---
SCHEDULED AND PRESCRIBED MEDICATION WAS GIVEN TO PT PER MD ORDER. ALL SAFETY MEASURES IMPLEMENTED. BED IN LOW POSITION, BED WHEELS ON LOCK AND CALL LIGHT WITHIN REACH.
[2022-09-02] MEDS: BLOOD GLUCOSE MONITORING 1 DEV DEV FS SCH ×4 (06:32→20:40)
[2022-09-02] MEDS: INSULIN LISPRO SLIDING SCALE 100 UNITS/ML VIAL SUBQ PRN ×3 (06:33→20:51)
--- NOTE | 2022-09-02 06:33 | NUR ---
PT BLOOD GLUCOSE IS 210. HUMALOG INSULIN 4 UNITS WAS GIVEN TO PT.
[2022-09-02 06:56] LABS: BASOPHILS % (AUTO) 0.6 % (0.0-2.0); EOSINOPHILS # (AUTO) 0.2 K/uL (0-0.4); EOSINOPHILS % (AUTO) 4.4 % (0.0-4.0); HEMATOCRIT 40.1 % (36-52); HEMOGLOBIN 14.5 g/dL (12.0-18.0); LYMPHOCYTES # (AUTO) 1.9 K/uL (2.0-11.5); MEAN CORPUSCULAR HEMOGLOBIN 32 pg (27-31); MEAN CORPUSCULAR HGB CONC 36 g/dL (33-37); MEAN CORPUSCULAR VOLUME 89.6 fL (80-94); MONOCYTES # (AUTO) 0.5 K/uL (0.8-1.0); MONOCYTES % (AUTO) 9.4 % (1.7-9.3); NEUTROPHILS # (AUTO) 2.9 K/uL (1.8-7.7); NEUTROPHILS % (AUTO) 51.6 % (42.2-75.2); PLATELET COUNT (AUTO) 139 K/uL (140-450); RED BLOOD CELL COUNT(AUTO) 4.48 MIL/uL (4.20-6.10); RED CELL DISTRIBUTION WIDTH 14.3 % (11.6-13.7); WHITE BLOOD COUNT (AUTO) 5.7 K/uL (4.8-10.8)
--- NOTE | 2022-09-02 07:17 | NUR ---
PT IS STABLE. ENDORSED PT TO MORNING SHIFT NURSE FOR CONTINUITY OF CARE.
[2022-09-02 07:41] LABS: ALBUMIN 3.2 g/dL (3.4-5.0); ANION GAP 11.2 (8-16); CARBON DIOXIDE 27.6 mmol/L (21-32); CREATININE 0.7 mg/dL (0.6-1.3); MAGNESIUM 1.9 mg/dL (1.8-2.4); POTASSIUM 3.8 mmol/L (3.5-5.1); TOTAL BILIRUBIN 0.8 mg/dL (0.0-1.0)
[2022-09-02 08:00] VITALS: BP 126/73
[2022-09-02] MEDS: DOCUSATE SODIUM 100 MG GELCAP PO SCH (09:00)
[2022-09-02] MEDS: GABAPENTIN 300 MG CAP PO SCH ×3 (09:29→17:58)
[2022-09-02] MEDS: VANCOMYCIN 1,500 MG in DEXTROSE 5% 500 ML IV SCH ×2 (09:30→21:07)
[2022-09-02] MEDS: INSULIN LISPRO 100 UNITS/ML VIAL SUBQ SCH ×2 (11:34→17:55)
[2022-09-02] MEDS: THERAHONEY GEL 42.5 GM TP SCH (13:00)
--- NOTE | 2022-09-02 14:15 | NUR ---
09/02/22 RD INITIAL ASSESSMENT COMPLETED PLEASE REFER TO NUTRITION ASSESSMENT UNDER CARE ACTIVITY FOR ESTIMATED NUTRITIONAL NEEDS. 1. [facility] DIET TOLERATED 2. RD RECOMMENDS PROSOURCE BID FOR WOUNDS, THIS WILL PROVIDE 120 CALORIES AND 30 GRAMS OF PROTEIN. 3. RD TO FOLLOW-UP 7 DAYS, LOW RISK RIVKA GALO, RD
[2022-09-02] MEDS: MORPHINE SULFATE 4 MG/ML SYR IVP PRN ×2 (15:41→23:53)
[2022-09-02 16:00] VITALS: BP 127/70
--- NOTE | 2022-09-02 19:30 | NUR ---
RECEIVED PT FROM MORNING SHIFT NURSE. PT IS AOX4, AMBULATORY, ABLE TO VERBALIZE NEEDS AND ABLE TO FOLLOW COMMANDS. PT IS ON ROOM AIR AND ON CCHO DIET. PT HAS IV ON LEFT FOREARM GAUGE 22, SALINE LOCK. PT HAS RIGHT LOWER LEG CELLULITIS. PT COMPLAIN OF PAIN ON RIGHT LOWER LEG. NO S/S OF RESPIRATORY DISTRESS NOTED. ALL SAFETY MEASURES IMPLEMENTED. BED IN LOW POSITION. BED WHEELS ON LOCK AND CALL LIGHT WITHIN REACH
[2022-09-02] MEDS: INSULIN LANTUS 100 UNITS/ML 10 ML VIAL SUBQ SCH (20:43)
--- NOTE | 2022-09-02 20:51 | NUR ---
SCHEDULED AND PRESCRIBED MEDICATION WAS GIVEN TO PT PER MD ORDER. PT BLOOD GLUCOSE IS 245. HUMALOG INSULIN 4 UNITS WAS GIVEN TO PT. PRN OXYCODONE WAS ALSO GIVEN DUE TO PAIN ON RIGHT LOWER LEG WITH PAIN SCALE OF 8/10. ALL SAFETY MEASURES IMPLEMENTED. BED IN LOW POSITION. BED WHEELS ON LOCK AND CALL LIGHT WITHIN REACH
--- NOTE | 2022-09-02 21:07 | NUR ---
SCHEDULED AND PRESCRIBED MEDICATION WAS GIVEN TO PT PER MD ORDER. ALL SAFETY MEASURES IMPLEMENTED. BED IN LOW POSITION. BED WHEELS ON LOCK AND CALL LIGHT WITHIN REACH
--- NOTE | 2022-09-02 23:53 | NUR ---
SCHEDULED AND PRESCRIBED MEDICATION WAS GIVEN TO PT. PRN PAIN MEDICATION WAS GIVEN TO PT DUE TO RIGHT LOWER LEG PAIN WITH PAIN SCALE OF 8/10. ALL SAFETY MEASURES IMPLEMENTED. BED IN LOW POSITION, BED WHEELS ON LOCK AND CALL LIGHT WITHIN REACH.
[2022-09-03] VITALS: BP 139/82
--- NOTE | 2022-09-03 02:00 | NUR ---
PT IS SLEEPING. CHEST RISE AND FALL SYMMETRICALLY NOTED. RESPIRATION IS EVEN AND UNLABORED. ALL SAFETY MEASURES IMPLEMENTED. BED IN LOW POSITION. BED WHEELS ON LOCK AND CALL LIGHT WITHIN REACH.
--- NOTE | 2022-09-03 04:00 | NUR ---
CHECKED THE PT, STILL SLEEPING. CHEST RISE AND FALL SYMMETRICALLY NOTED. RESPIRATION IS EVEN AND UNLABORED. ALL SAFETY MEASURES IMPLEMENTED. BED IN LOW POSITION. BED WHEELS ON LOCK AND CALL LIGHT WITHIN REACH.
[2022-09-03] MEDS: PIPERACILLIN/TAZOBACTAM 3.375 GM in DEXTROSE 5% 50 ML IV SCH ×3 (05:20→17:58)
--- NOTE | 2022-09-03 05:20 | NUR ---
SCHEDULED AND PRESCRIBED MEDICATION WAS GIVEN TO PT PER MD ORDER. ALL SAFETY MEASURES IMPLEMENTED. BED IN LOW POSITION. BED WHEELS ON LOCK AND CALL LIGHT WITHIN REACH.
[2022-09-03] MEDS: oxyCODONE 5 MG TAB PO PRN ×2 (05:48→20:21)
--- NOTE | 2022-09-03 05:48 | NUR ---
PT WAS GIVEN PRN OXYCODONE DUE TO RIGHT LOWER LED PAIN WITH PAIN SCALE OF 6/10. ALL SAFETY MEASURES IMPLEMENTED. BED IN LOW POSITION, BED WHEELS ON LOCK AND CALL LIGHT WITHIN REACH.
[2022-09-03] MEDS: INSULIN LISPRO SLIDING SCALE 100 UNITS/ML VIAL SUBQ PRN ×3 (06:32→20:46)
[2022-09-03] MEDS: BLOOD GLUCOSE MONITORING 1 DEV DEV FS SCH ×4 (06:32→20:39)
--- NOTE | 2022-09-03 06:32 | NUR ---
PT BLOOD GLUCOSE IS 157. HUMALOG INSULIN 2 UNITS WAS GIVEN TO PT.
--- NOTE | 2022-09-03 07:05 | NUR ---
PT IS STABLE. ENDORSED PT TO MORNING SHIFT NURSE FOR CONTINUITY OF CARE.
[2022-09-03 07:14] LABS: BASOPHILS % (AUTO) 0.8 % (0.0-2.0); EOSINOPHILS # (AUTO) 0.2 K/uL (0-0.4); HEMOGLOBIN 14.7 g/dL (12.0-18.0); LYMPHOCYTES # (AUTO) 1.7 K/uL (2.0-11.5); LYMPHOCYTES % (AUTO) 28.4 % (20.5-51.1); MEAN CORPUSCULAR HEMOGLOBIN 32 pg (27-31); MEAN CORPUSCULAR HGB CONC 36 g/dL (33-37); MEAN CORPUSCULAR VOLUME 90.2 fL (80-94); MONOCYTES # (AUTO) 0.5 K/uL (0.8-1.0); NEUTROPHILS # (AUTO) 3.6 K/uL (1.8-7.7); NEUTROPHILS % (AUTO) 58.8 % (42.2-75.2); PLATELET COUNT (AUTO) 147 K/uL (140-450); RED BLOOD CELL COUNT(AUTO) 4.54 MIL/uL (4.20-6.10); RED CELL DISTRIBUTION WIDTH 14.5 % (11.6-13.7); WHITE BLOOD COUNT (AUTO) 6.1 K/uL (4.8-10.8)
[2022-09-03 07:30] LABS: ALBUMIN 3.2 g/dL (3.4-5.0); ANION GAP 11.9 (8-16); CARBON DIOXIDE 28.8 mmol/L (21-32); CREATININE 0.7 mg/dL (0.6-1.3); MAGNESIUM 1.8 mg/dL (1.8-2.4); POTASSIUM 3.7 mmol/L (3.5-5.1); TOTAL BILIRUBIN 0.8 mg/dL (0.0-1.0)
[2022-09-03 08:00] VITALS: BP 154/69
[2022-09-03] MEDS: GABAPENTIN 300 MG CAP PO SCH ×3 (08:46→17:58)
[2022-09-03] MEDS: DOCUSATE SODIUM 100 MG GELCAP PO SCH (08:46)
[2022-09-03] MEDS: INSULIN LISPRO 100 UNITS/ML VIAL SUBQ SCH ×3 (08:47→18:01)
[2022-09-03] MEDS: VANCOMYCIN 1,500 MG in DEXTROSE 5% 500 ML IV SCH ×2 (09:23→21:03)
[2022-09-03] MEDS: MORPHINE SULFATE 4 MG/ML SYR IVP PRN ×2 (09:30→23:34)
--- NOTE | 2022-09-03 10:00 | NUR ---
pain re assessment of morphine 4 mg on right leg . 1/10 on pain scale . will continue to monitor
--- NOTE | 2022-09-03 10:55 | NUR ---
receive the patient from the warehouse supervisor 3rd shift efrain Liu in rm [address] aox4 with admitting diagnosis of right leg cellulitis . with vancymicin antibiotics , will continue to monitor
[2022-09-03] MEDS ORDERED: VANCOMYCIN PER PHARMACY MC PRN (13:10)
[2022-09-03] MEDS: THERAHONEY GEL 42.5 GM TP SCH (14:54)
[2022-09-03 16:00] VITALS: BP 128/85
--- NOTE | 2022-09-03 19:10 | NUR ---
still on antibiotic therapy for right leg selling . will endorse to second shift supervisor rn for continuity of care
--- NOTE | 2022-09-03 19:11 | NUR ---
RECEIVED PT FROM MORNING SHIFT NURSE. PT IS AOX4, AMBULATORY, ABLE TO VERBALIZE NEEDS AND ABLE TO FOLLOW COMMANDS. PT IS ON ROOM AIR AND ON CCHO DIET. PT HAS IV ON LEFT FOREARM GAUGE 22, RUNNING WITH NS AT TKO. PT HAS RIGHT LOWER LEG CELLULITIS. PT COMPLAIN OF PAIN ON RIGHT LOWER LEG. NO S/S OF RESPIRATORY DISTRESS NOTED. ALL SAFETY MEASURES IMPLEMENTED. BED IN LOW POSITION. BED WHEELS ON LOCK AND CALL LIGHT WITHIN REACH
--- NOTE | 2022-09-03 20:21 | NUR ---
PRN PAIN MEDICATION WAS GIVEN TO PT DUE TO PAIN ON RIGHT LOWER LEG WITH PAIN SCALE OF 6/10. ALL SAFETY MEASURES IMPLEMENTED. BED IN LOW POSITION. BED WHEELS ON LOCK AND CALL LIGHT WITHIN REACH
[2022-09-03] MEDS: INSULIN LANTUS 100 UNITS/ML 10 ML VIAL SUBQ SCH (20:45)
--- NOTE | 2022-09-03 21:03 | NUR ---
ALL SCHEDULED AND PRESCRIBED MEDICATION WAS GIVEN TO PT PER MD ORDER. PT BLOOD GLUCOSE IS 240, HUMALOG INSULIN 4 UNITS WAS GIVEN TO PT. ALL SAFETY MEASURES IMPLEMENTED. BED IN LOW POSITION. BED WHEELS ON LOCK AND CALL LIGHT WITHIN REACH
--- NOTE | 2022-09-03 23:34 | NUR ---
PRN PAIN MEDICATION WAS GIVEN TO PT DUE TO RIGHT LEG PAIN WITH PAIN SCALE OF 8/10. ALL SAFETY MEASURES IMPLEMENTED. BED IN LOW POSITION. BED WHEELS ON LOCK AND CALL LIGHT WITHIN REACH
[2022-09-04] VITALS: BP 123/75
[2022-09-04] MEDS: PIPERACILLIN/TAZOBACTAM 3.375 GM in DEXTROSE 5% 50 ML IV SCH ×4 (00:23→17:10)
--- NOTE | 2022-09-04 02:00 | NUR ---
PT IS ON SLEEP. CHEST RISE AND FALL SYMMETRICALLY NOTED. RESPIRATION IS EVEN AND UNLABORED. ALL SAFETY MEASURES IMPLEMENTED. BED IN LOW POSITION. BED WHEELS ON LOCK AND CALL LIGHT WITHIN REACH
[2022-09-04] MEDS: oxyCODONE 5 MG TAB PO PRN ×2 (05:05→12:57)
--- NOTE | 2022-09-04 05:05 | NUR ---
PRN PAIN MEDICATION WAS GIVEN TO PT DUE TO PAIN ON RIGHT LOWER LEG WITH PAIN SCALE OF 6/10. SCHEDULED AND PRESCRIBED MEDICATION WAS ALSO GIVEN TO PT PER MD ORDER. ALL SAFETY MEASURES IMPLEMENTED. BED IN LOW POSITION. BED WHEELS ON LOCK AND CALL LIGHT WITHIN REACH
[2022-09-04] MEDS: BLOOD GLUCOSE MONITORING 1 DEV DEV FS SCH ×4 (06:35→21:00)
--- NOTE | 2022-09-04 06:35 | NUR ---
PT BLOOD GLUCOSE IS 135. NO INSULIN COVERAGE NEEDED.
--- NOTE | 2022-09-04 07:17 | NUR ---
receive the patient from the emergency medicine physician assistant rn in rm 113 aox4 with admitting diagnosis of right leg cellulitis afebrile. still on antibiotics therapy . will continue to monitor
--- NOTE | 2022-09-04 07:21 | NUR ---
PT IS STABLE. ENDORSED PT TO MORNING SHIFT NURSE FOR CONTINUITY OF CARE.
[2022-09-04 08:00] VITALS: BP 117/80
[2022-09-04] MEDS: GABAPENTIN 300 MG CAP PO SCH ×3 (09:12→17:05)
[2022-09-04] MEDS: INSULIN LISPRO 100 UNITS/ML VIAL SUBQ SCH ×4 (09:15→22:17)
[2022-09-04] MEDS: MORPHINE SULFATE 4 MG/ML SYR IVP PRN ×2 (09:17→17:57)
[2022-09-04] MEDS: DOCUSATE SODIUM 100 MG GELCAP PO SCH (09:22)
[2022-09-04 09:40] LABS: ANION GAP 11.6 (8-16); CARBON DIOXIDE 29.5 mmol/L (21-32); CREATININE 0.6 mg/dL (0.6-1.3); POTASSIUM 4.1 mmol/L (3.5-5.1)
[2022-09-04] MEDS: VANCOMYCIN 1,500 MG in DEXTROSE 5% 500 ML IV SCH ×2 (10:03→21:13)
[2022-09-04] MEDS: INSULIN LISPRO SLIDING SCALE 100 UNITS/ML VIAL SUBQ PRN ×2 (12:04→17:09)
[2022-09-04] MEDS: THERAHONEY GEL 42.5 GM TP SCH (12:48)
[2022-09-04 16:00] VITALS: BP 119/58
[2022-09-04 20:00] VITALS: BP 112/79
[2022-09-04] MEDS: INSULIN LANTUS 100 UNITS/ML 10 ML VIAL SUBQ SCH (22:11)
[2022-09-05] MEDS: oxyCODONE 5 MG TAB PO PRN ×2 (00:14→07:25)
[2022-09-05] MEDS: PIPERACILLIN/TAZOBACTAM 3.375 GM in DEXTROSE 5% 50 ML IV SCH ×3 (00:16→14:50)
[2022-09-05] MEDS: MORPHINE SULFATE 4 MG/ML SYR IVP PRN ×3 (00:52→14:49)
[2022-09-05 04:00] VITALS: BP 134/72
--- NOTE | 2022-09-05 07:35 | NUR ---
RECEIVED REPORT FROM SUPERVISOR [employer] WOOD NURSE FOR CONTINUITY OF CARE. PT IS STABLE.
[2022-09-05] MEDS: INSULIN LISPRO SLIDING SCALE 100 UNITS/ML VIAL SUBQ PRN (07:53)
[2022-09-05] MEDS: BLOOD GLUCOSE MONITORING 1 DEV DEV FS SCH ×3 (07:55→17:14)
[2022-09-05] MEDS: DOCUSATE SODIUM 100 MG GELCAP PO SCH (08:12)
[2022-09-05] MEDS: GABAPENTIN 300 MG CAP PO SCH ×3 (08:17→17:06)
[2022-09-05] MEDS: VANCOMYCIN 1,500 MG in DEXTROSE 5% 500 ML IV SCH (10:44)
[2022-09-05] MEDS: INSULIN LISPRO 100 UNITS/ML VIAL SUBQ SCH ×2 (12:16→17:15)
[2022-09-05] MEDS: THERAHONEY GEL 42.5 GM TP SCH (13:00)
[2022-09-05 14:58] VITALS: BP 131/73
[2022-09-05 16:00] VITALS: BP 131/73
--- NOTE | 2022-09-05 19:30 | NUR ---
[place] [facility] [place] BY 2 TRANSPORTATION STAFF.
== END 2022-09-05 19:32 | disposition home health service (06) | DRG 380 ==
LOC: MED 21:45 → MTU 08-29 00:38
PROVIDERS: ADMIT Internal Medicine; ATTEND Internal Medicine
DX: E11.622 Type 2 diabetes mellitus with other skin ulcer (principal); L97.919 Non-pressure chronic ulcer of unspecified part of right lower leg with unspecified severity; Z20.822 Contact with and (suspected) exposure to COVID-19
CPT/HCPCS: 36415; 71045; 73590; 80048; 80053; 80202; 81003; 82948; 83605; 83735; 83880; 84484; 85025; 87040; 87070; 87075; 87081; 87086; 87205; 93005; 96365; 96375; 97110; 97116; 99285; J0696; J1644; J1815; J2270; J2543; J3370; J7060; Q0092